=== PATIENT | male | born 1985 | race Caucasian/White ===

== ENCOUNTER 2018-01-25 18:12 | Emergency (ER) | payer SELFPAY ==
[~2018-01-25] VITALS: Ht 180.3 cm; Wt 68.0 kg
[2018-01-25 18:32] VITALS: BP 140/94
[2018-01-25] MEDS ORDERED: NAPR-683 PO (18:49)
[2018-01-25] MEDS ORDERED: PENI500T PO (18:49)
[2018-01-25] MEDS ORDERED: HYDR-971 PO (18:49)
--- NOTE | 2018-01-25 18:49 | PHYS DOC ---
Past History Past Medical History: Other Past Surgical History: No Surgical History Smoking: Cigarettes, Less than 1pk/day Alcohol Use: None Drug Use: None Adult General Chief Complaint Chief Complaint: DENTAL PROBLEM HPI HPI 32-year-old male patient states he had left canine tooth root canal and the cap came off several months ago and had intermittent episodes of pain but for the last 3 days he has had jaw and tooth pain with radiation to left ear that didn' t get better with [id number] ibuprofen. She denies fever and chills, nausea and vomiting, new dental injury. Review of Systems Review of Systems Constitutional: Denies fever or chills [] Eyes: Denies change in visual acuity, redness, or eye pain [] HENT: Denies nasal congestion or sore throat [] Respiratory: Denies cough or shortness of breath [] Cardiovascular: No additional information not addressed in HPI [] GI: Denies abdominal pain, nausea, vomiting, bloody stools or diarrhea [] : Denies dysuria or hematuria [] Musculoskeletal: Denies back pain or joint pain [] Integument: Denies rash or skin lesions [] Neurologic: Denies headache, focal weakness or sensory changes [] Endocrine: Denies polyuria or polydipsia [] All other systems were reviewed and found to be within normal limits, except as documented in this note. Current Medications Current Medications Current Medications Medications (Trade) Dose Ordered Sig/Hiral Start Time Stop Time Status Last Admin Dose Admin Acetaminophen/ Hydrocodone Bitart (Lortab 5/325) 1 tab 1X ONCE 01/25/18 18:45 01/25/18 18:46 UNV Allergies Allergies Allergies Coded Allergies Type Severity Reaction Last Updated Verified No Known Drug Allergies 01/25/18 No Physical Exam Physical Exam Constitutional: Well developed, well nourished, mild distress, non-toxic appearance. [] HENT: Normocephalic, atraumatic, bilateral external ears normal, oropharynx moist, no oral exudates, nose normal, fractured#11 tooth (left upper canine) with tenderness without sign of abscess Eyes: PERRLA, EOMI, conjunctiva normal, no discharge. [] Neck: Normal range of motion, no tenderness, supple, no stridor. [] Cardiovascular:Heart rate regular rhythm, no murmur [] Lungs & Thorax: Bilateral breath sounds clear to auscultation [] Neurologic: Alert and oriented X 3, normal motor function, normal sensory function, no focal deficits noted. [] Psychologic: Affect normal, judgement normal, mood normal. [] Current Patient Data Vital Signs Vital Signs Date Time Temp Pulse Resp B/P (MAP) Pulse Ox O2 Delivery O2 Flow Rate FiO2 01/25/18 18:32 99.9 102 22 100 EKG EKG [] Radiology/Procedures Radiology/Procedures [] Course & Med Decision Making Course & Med Decision Making Evaluation of patient in ER showed 32-year-old male patient with complaining of dentalgia for 3 days and fractured tooth for several months. Patient did not want dental block or IM pain medication. [place] was given and patient instructed to follow-up with dentist and resources was provided. Patient instructed to quit smoking. Dragon Disclaimer Dragon Disclaimer This electronic medical record was generated, in whole or in part, using a voice recognition dictation system. Departure Departure: Impression: Primary Impression: Dental cavity Additional Impressions: Dentalgia Tobacco abuse Tobacco abuse counseling Disposition: HOME, SELF-CARE (At 1845) Condition: STABLE Referrals: PCP,NO (PCP) Patient Instructions: Dental Pain, Smoking Cessation, Tips For Success, Tooth Fracture Additional Instructions: Follow-up with a dentist in 5-7 days Return to ER if not getting better Scripts Naproxen (NAPROSYN) 500 Mg Tablet 1 TAB PO BID, #20 TAB Prov: MATT LEDESMA MD 01/25/18 Hydrocodone Bit/Acetaminophen (NORCO 5-325 TABLET) 1 Each Tablet 1 TAB PO PRN Q6HRS PRN for PAIN, #14 TAB 0 Refills Prov: MATT LEDESMA MD 01/25/18 Penicillin V Potassium (PENICILLIN V POTASSIUM) 500 Mg Tablet 1 TAB PO QID, #40 TAB Prov: MATT LEDESMA MD 01/25/18 Problem Qualifiers MATT LEDESMA MD Jan 25, 2018 18:49
[2018-01-25] MEDS ORDERED: HYDROcodone/APAP 5/325MG 1 TAB TABLET PO ONE (19:00)
== END 2018-01-25 19:11 | disposition home or self-care (01) ==
LOC: ER 18:12
DX: K02.9 Dental caries, unspecified (principal); F17.210 Nicotine dependence, cigarettes, uncomplicated; Z71.6 Tobacco abuse counseling
CPT/HCPCS: 99283